=== PATIENT | female | born 1980 | race Two or more races ===

== ENCOUNTER 2019-01-24 18:19 | Inpatient (IN) | payer OTHER ==
[~2019-01-24] VITALS: Ht 170.2 cm; Wt 113.3 kg
[2019-01-24 19:24] LABS: Basophils # (auto) 0 uL; Basophils % (auto) 0.2 % (0.0-2.0); Eosinophils # (auto) 0.1 uL; Eosinophils % (auto) 1.2 % (0.0-7.0); Hemoglobin 15.5 g/dL (12.2-16.2); Lymphocytes # (auto) 0.6 uL; Lymphocytes % (auto) 5.5 % (10.0-50.0); Mean Corpuscular Hemoglobin 31.2 pg (28.0-32.0); Mean Corpuscular Hgb Conc. 33.7 g/dL (32.0-36.0); Mean Corpuscular Volume 92.5 fL (80.0-100.0); Monocytes # (auto) 0.4 uL; Monocytes % (auto) 3.6 % (0.0-12.0); Neutrophils # (auto) 9.9 uL; Neutrophils % (auto) 89.5 % (37.0-80.0); Platelet Count (auto) 96 10^3/uL (140-450); Red Blood Cells 4.97 10^6/uL (4.0-5.20); Red Cell Distribution Width 12.6 % (11.8-14.3); White Blood Cell 11.1 10^3/uL (4.4-10.8)
[2019-01-24 19:27] LABS: Urine Pregnacy Test Negative (Negative)
[2019-01-24 19:34] LABS: Urine Bacteria NONE SEEN /hpf (None Seen); Urine Blood Negative /uL (Negative); Urine Mucus FEW (None Seen); Urine Specific Gravity 1.024 (1.001-1.035); Urine WBC 5 /hpf (0 - 5)
[2019-01-24 19:37] LABS: Albumin 4.1 g/dL (3.4-5.0); Anion Gap 9 (5-15); Blood Urea Nitrogen 9 mg/dL (7-18); Calcium 8.2 mg/dL (8.5-10.1); Carbon Dioxide 25 mmol/L (21-32); Chloride 104 mmol/L (98-107); Glucose 110 mg/dL (74-106); Magnesium 1.9 mg/dL (1.6-2.6); Potassium 3.4 mmol/L (3.5-5.1); Sodium 138 mmol/L (136-145)
[2019-01-24 19:41] LABS: Alcohol, Urine < 3.0 mg/dL (0-5); Amphetamine Screen, Urine NEGATIVE (NEGATIVE); Barbiturate Scree,Urine NEGATIVE (NEGATIVE); Benzodiazephine Screen, Urine NEGATIVE (NEGATIVE); Cannabinoid Screen, Urine NEGATIVE (NEGATIVE); Cocaine Screen, Urine NEGATIVE (NEGATIVE); Opiate Scree,Urine NEGATIVE (NEGATIVE); Phencyclidine Screen, Urine NEGATIVE (NEGATIVE)
[2019-01-24 19:41] LABS: INR 0.96 (0.9-1.15); Partial Thromboplastin Time 27.6 sec (23.78-33.04); Prothrombin Time 10.3 sec (9.27-12.13)
[2019-01-24 19:43] LABS: Alanine Aminotransferase 39 U/L (13-56); Alkaline Phosphatase 105 U/L (45-117); Aspartate Aminotransferase 40 U/L (15-37); BUN/Creatinine Ratio 11.8; Bilirubin, Total 0.6 mg/dL (0.2-1.0); GFR African American 110 mL/min; GFR Non-African American 91 mL/min
[2019-01-24 19:44] LABS: Amylase 31 U/L (25-115); Lipase 97 U/L (73-393)
[2019-01-24] MEDS ORDERED: SODIUM CHLORIDE 0.9% 500 ML IV ONE (20:49)
[2019-01-24] MEDS ORDERED: cefTRIAXone 1GM/50ML D5W 50 ML IV ONE (21:00)
[2019-01-24] MEDS ORDERED: ASPirin 325 MG TAB PO ONE (21:00)
[2019-01-24] MEDS ORDERED: MORPHINE SULF INJ 2 MG/ML SYRINGE 1ML IV ONE (21:00)
[2019-01-24] MEDS ORDERED: IOHEXOL 350 MG/ML 100ML IJ ONE (21:02)
[2019-01-24] MEDS ORDERED: POTASSIUM CHL 20 Meq TABLET PO ONE (23:15)
[2019-01-25] MEDS ORDERED: HEPARIN IN NS 1000U/500ML (2UNIT/ML) 500 ML BAG/KIT IV ONE (03:00)
[2019-01-25] MEDS ORDERED: HEPARIN DRIP/D5W 100UNITS/ML 250 ML IV SCH (03:05)
[2019-01-25] MEDS ORDERED: HYDROcodone-ACET 5/325MG TAB PO PRN (03:15)
[2019-01-25] MEDS ORDERED: ACETAMINOPHEN 500 MG TAB PO PRN (03:15)
[2019-01-25] MEDS ORDERED: HEPARIN SODIUM (PORCINE) 5000 UNITS/ML 1ML VIAL IV ONE (03:15)
[2019-01-25] MEDS ORDERED: ONDANSETRON HCL 4 MG/2 ML VIAL IV PRN (03:15)
[2019-01-25] MEDS ORDERED: ENOXAPARIN SOD 120 MG/0.8 ML SYRINGE SC ONE (04:00)
[2019-01-25 05:34] VITALS: BP 115/67
[2019-01-25 07:09] LABS: Basophils # (auto) 0 uL; Basophils % (auto) 0.4 % (0.0-2.0); Eosinophils # (auto) 0.1 uL; Eosinophils % (auto) 2.1 % (0.0-7.0); Hematocrit 40.6 % (36.0-46.0); Lymphocytes # (auto) 1.3 uL; Lymphocytes % (auto) 23.1 % (10.0-50.0); Mean Corpuscular Hemoglobin 31.5 pg (28.0-32.0); Mean Corpuscular Hgb Conc. 34.4 g/dL (32.0-36.0); Mean Corpuscular Volume 91.6 fL (80.0-100.0); Monocytes # (auto) 0.5 uL; Monocytes % (auto) 8.7 % (0.0-12.0); Neutrophils # (auto) 3.7 uL; Neutrophils % (auto) 65.7 % (37.0-80.0); Nucleated Red Blood Cells % 0.1 %; Platelet Count (auto) 208 10^3/uL (140-450); Red Blood Cells 4.43 10^6/uL (4.0-5.20); Red Cell Distribution Width 12.6 % (11.8-14.3); White Blood Cell 5.7 10^3/uL (4.4-10.8)
--- NOTE | 2019-01-25 07:20 | NUR ---
Open Shift Note Received report on patient, awake and sitting up in bed. Patient shows no signs of distress at this time, states they do not feel any shortness of breath at this time. Discussed POC with patient. Bed in lowest locked position, side rails up x2, and call light within reach. Will continue to monitor.
[2019-01-25 07:29] LABS: BUN/Creatinine Ratio 10.9; Calcium 8.1 mg/dL (8.5-10.1)
[2019-01-25 09:00] VITALS: BP 109/61
[2019-01-25] MEDS ORDERED: APIXABAN 5 MG TAB PO SCH (10:00)
--- NOTE | 2019-01-25 12:55 | NUR ---
Transfer: Faxed and called [facility] with transfer summary, transfer order.
[2019-01-25 13:00] VITALS: BP 123/77
--- NOTE | 2019-01-25 14:40 | NUR ---
Connie From [facility] Called Connie from [facility] called and stated she is working on getting patient a bed at [facility]. gave her update on patient's status. Still awaiting bed assignment.
--- NOTE | 2019-01-25 14:52 | NUR ---
LUIS ARMANDO Rosales for [facility] left me a message stating she received transfer order and she is working on getting a bed for pt. Connie will reach out to primary RN to get updated pt status
[2019-01-25 17:00] VITALS: BP 123/72
[2019-01-25 17:33] VITALS: BP 123/72
--- NOTE | 2019-01-25 18:35 | NUR ---
Gave Report To [facility] and gave transfer report to [facility], CODY Sparks. Patient going to room 306, tele. [phone].
--- NOTE | 2019-01-25 19:30 | NUR ---
End of Shift Endorsed care and transfer to [facility] nurse Morris. Transport to arrive at 1999. Patient shows no signs of distress at this time. Bed in lowest locked position, side rails up x2, and call light within reach.
[2019-01-25 21:00] VITALS: BP 124/76
[2019-01-25] MEDS ORDERED: cefTRIAXone 1GM/50ML D5W 50 ML IV SCH (21:00)
--- NOTE | 2019-01-25 21:05 | NUR ---
Pt being trans to another hosp Order obtained for transfer of ROMEO ARCHER to [facility] . Report given to EMS transport team. Medication reconciliation form completed and copy given to patient. Transported via along with copied chart and imaging films/disk and all personal belongings. No distress noted on time of departure. Family notified of destination and room number, verbalized understanding.
[2019-01-25] MEDS ORDERED: ENOXAPARIN SOD 100 MG/1 ML SYRINGE SC SCH (22:00)
[2019-02-01] MEDS ORDERED: APIXABAN 5 MG TAB PO SCH (10:00)
== END 2019-01-25 21:05 | disposition short-term general hospital (02) | DRG 176 ==
LOC: ER 18:19 → TELE 01-25 03:10 → TELE-EAST 01-25 04:36
PROVIDERS: ADMIT Nurse Practitioner Family; ATTEND Internal Medicine
DX: I26.99 Other pulmonary embolism without acute cor pulmonale (principal); N39.0 Urinary tract infection, site not specified; C64.2 Malignant neoplasm of left kidney, except renal pelvis; N28.9 Disorder of kidney and ureter, unspecified; M54.9 Dorsalgia, unspecified; F41.9 Anxiety disorder, unspecified; E66.9 Obesity, unspecified; Z68.39 Body mass index [BMI] 39.0-39.9, adult; Z88.2 Allergy status to sulfonamides
CPT/HCPCS: 36415; 71045; 71275; 76775; 80048; 80053; 80307; 81001; 81025; 82150; 83690; 83735; 83880; 84443; 84484; 85025; 85379; 85610; 85730; 87086; 93005; 93970; 94761; 96361; 96365; G0378; J0696